=== PATIENT | female | born 1940 | race Caucasian/White ===

== ENCOUNTER 2022-03-28 11:13 | Outpatient (CLI) | payer MEDICARE, BC | END 2022-03-28 11:14 | disposition home or self-care (01) | LOC: BICCT 11:13 | PROVIDERS: ATTEND Specialist | DX: C18.4 Malignant neoplasm of transverse colon (principal); K57.30 Diverticulosis of large intestine without perforation or abscess without bleeding; N28.89 Other specified disorders of kidney and ureter | CPT/HCPCS: 74177; 82565 ==